=== PATIENT | male | born 1935 | race Caucasian/White ===

== ENCOUNTER 2016-07-25 11:17 | Emergency (ER) | payer MEDICARE, OTHER ==
[~2016-07-25] VITALS: Ht 180.3 cm; Wt 93.2 kg
[2016-07-25 11:19] VITALS: BP 134/87; PULSE 62; RESP 15; O2SAT 97
--- NOTE | 2016-07-25 13:24 | DRSVH ---
PROCEDURE: CT BRAIN WITHOUT CONTRAST ([id number]) INDICATIONS: fall, head trauma TECHNIQUE: Noncontrast 4.5 mm thick angled axial sections acquired from the foramen magnum to the vertex, with c oronal reformats. COMPARISON: None. FINDINGS: Image quality: Diagnostic. Brain: There is no acute intra-axial or extra-axial hemorrhage. No extra-axial fluid collection is i dentified. There is no midline shift or mass effect. The orbits are grossly unremarkable. No large areas of diffusely decreased attenuation are evident within the brain to suggest diffuse cer ebral edema. Areas of periventricular white matter low attenuation are present. 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 The ventricles and cortical sulci are moderately prominent. Bones: Calvarium and visualized facial bones are grossly intact. The imaged paranasal sinuses and m astoid air cells are clear. IMPRESSION: 1. No acute intracranial hemorrhage. 2. Mild chronic small vessel ischemic changes and parenchymal volume loss. Dictated by: Brayden Frankel M.D. on 07/25/2016 at 12:21 Approved by: Brayden Frankel M.D. on 07/25/2016 at 12:22
--- NOTE | 2016-07-25 13:41 | ED.REPORT ---
HPI-Trauma Minor / Fall Date of Service July 25, 2016 ED Provider: Helio Dawn PA-C Brannon is an 81-year-old male presents with a chief complaint of a ground-level fall. He reports tripping, striking his head against pavement just above his right eye. Also reports a skin tear on his right hand. Admits 7/10 headache. Denied use of blood thinners, seizure, vomiting, loss of consciousness, amnesia. Also denies neck pain, numbness/weakness/tingling in his limbs. Denies dizziness, presyncope, syncope. Nursing Notes Stated Complaint: POST FALL/HEAD AND RIGHT HAND INJURY Chief Complaint: Multiple Trauma/Fall Nursing Notes Reviewed: Yes Allergies: Coded Allergies: No Known Allergies (Unverified , 07/25/16) Scheduled Cephalexin (Cephalexin) 500 Mg Tablet 500 MG PO QID General Time Seen by MD: 12:20 Chief Complaint Fall Past Medical History Past Medical History Diabetes, hypertension Review of Systems Negative unless stated otherwise in history of present illness Physical Exam General: Well appearing, well developed, well nourished, no acute distress. Head: One and half centimeter laceration, right eyebrow. Negative mastoid or sinus tenderness Right arm: 5 similar laceration along the ulnar aspect of the distal forearm. No incursion into the muscle or joint space, negative foreign bodies. Eyes: No scleral icterus or injection. No discharge. PERRL. Vision grossly intact. Ears: Bilateral hearing aids in place. Hearing grossly intact. Nose: Symmetrical, nares patent without discharge. No frontal or maxillary sinus tenderness. Mouth/pharynx: normal dentition, mucus membranes moist. Tonsils 2+ and symmetrical, uvula midline. Pharynx noninjected, no cobblestoning or discharge. Voice clear. Neck: Supple, negative midline spinous process tenderness. No tenderness or lymphadenopathy. Trachea midline. Respiratory: No respiratory distress, no increased work of breathing. Speaks in complete sentences. Skin: Warm and dry. Neurological: Sensation and strength intact in extremities. Moderate tremor noted, which the patient states is chronic and at baseline. Cranial nerves: Vision grossly intact, PERRL, EOMI. Facial motion symmetrical, sensation to light touch over forehead, maxilla and mandible present and equal B /L. Voice clear and fluent, no drooling/pooling of saliva, uvula rises midline. Psychological: alert and oriented. Speech appropriate, linear and logical. Behavior appropriate. Initial Vital Signs Vital Signs (First) Date Time Temp Pulse Resp B/P Pulse Ox O2 Delivery O2 Flow Rate FiO2 07/25/16 11:19 36.1 62 15 134/87 97 Room Air Initial VS: Vital signs normal Interpretation & Diagnostics CT Head Interpretation PROCEDURE: CT BRAIN WITHOUT CONTRAST ([id number]) INDICATIONS: fall, head trauma IMPRESSION: 1. No acute intracranial hemorrhage. 2. Mild chronic small vessel ischemic changes and parenchymal volume loss. Interpretation / Wet Read by: Interpret - Radiologist Procedures Laceration Management Laceration Management: 1.5 cm laceration, right eyebrow Procedure Performed by: [facility] Consent / Setup / Site Prep: Informed consent provided, Consent from patient , Hand hygiene observed Local Anesthesia: Bupivacaine 0.5% (with epinephrine), 1cc, 27g needle Wound Preparation: Normal saline Debridement: None Foreign Body Explore / Removal: Explored for foreign body Repair Skin: Dermabond Closure Layers: 1 Post-Procedure / Complications: Dressing applied, No complications, Condition improved, Tolerated procedure well, Patient stable Laceration Management: 5 cm laceration left forearm Procedure Performed by: [facility] Consent / Setup / Site Prep: Informed consent provided, Consent from patient , Hand hygiene observed, Stand sterile technique Local Anesthesia: Bupivacaine 0.5% (with epinephrine), 3cc, 27g needle Wound Preparation: Normal saline Repair Skin: Nylon (5-0) # Sutures - Skin: 8 Suture Technique: Mattress Post-Procedure / Complications: Antibiotic oint applied, Dressing applied, No complications, Condition improved, Tolerated procedure well, Patient stable Re-Eval/Medical Decision Med Decision/Clinical Course 81-year-old male history of diabetes and hypertension presents for evaluation following a ground-level fall in which he struck his head against the pavement. Patient reports tripping and denies becoming dizzy, losing consciousness. Denies use of blood thinners other than aspirin, vomiting, seizure, amnesia, neck pain, numbness or tingling in his limbs. Does complain of a laceration on his right forearm and above his right eye. He is unsure of his tetanus status. CT scan of the brain is normal. Neurological examination is normal. C-spine cleared by nexus criteria as the patient was sober, alert and oriented with no distracting injuries, midline spinous process tenderness or focal neuro deficits. 1-1/2 severe laceration noted above right eye, 5 cm laceration noted and distal right forearm. This point I am reassured regarding the dangers condition such as intracranial bleeding, skull fracture or C-spine injury. Laceration above the right eye was cleaned with normal saline and closed with Dermabond. Laceration right forearm was cleansed with normal saline closed one layer with 8 mattress sutures, dressed with antibiotic ointment and gauze and placed in a splint with the fourth and fifth digits in slight flexion. Circulation and sensation were intact post splinting. Tetanus booster is provided as well as a prescription for cephalexin, which I feel is justified by his history of diabetes. Advised regarding wound care, primary care follow-up, emergency return precautions and [id number] analgesia. Patient verbalizes understanding of and consent to the plan. Discharge & Departure Impression: Primary Impression: Blunt head injury Encounter type: initial encounter Qualified Code: S09.8XXA - Other specified injuries of head, initial encounter Additional Impression: Laceration Disposition: Home Discharge Condition All VS Reviewed: Yes Condition: Stable Additional Instructions: Evaluation in the emergency department following a fall includes history, physical examination and CT scan which is reassuring that she does not have any bleeding in your brain. I believe there stable and safe to be discharged. You do have a small laceration over her right eye as well as a more significant laceration over your right hand. These both appear to be superficial, with no damage to the joint capsule or tendons of her hand. Because her history of diabetes, I will give prescription for cephalexin (Keflex ) to be taken 4 times a day for 5 days to prevent infection. We have updated her tetanus shot. We have cleaned and closed the wound on her forehead with skin glue. This should require no further treatment. The glue on the surface should flake off over the next week. We have cleaned, sutured and dressed the wound on your hand with antibiotic ointment and gauze. We have also placed in a splint to prevent the stitches from tearing out. He will come to remove the splint to make adjustments or check on the wound but please wear it at all times. Please leave this dressing on and dry for the next 24 hours. After that you can remove the dressing, clean with soap and water and then reapply antibiotic ointment and gauze or Band-Aid. Please do not submerge the wound as in washing dishes, swimming or soaking in a tub until you have the sutures removed. The pain is best treated with 400 mg of ibuprofen (Advil, Motrin) every 6 hours , or 1000 mg of acetaminophen (Tylenol) every 6 hours. These drugs can be taken at the same time for more severe pain. Be vigilant for signs of infection. While a small amount of redness, tenderness and clear or pink drainage is normal, any increasing pain, redness, swelling or the appearance of pus suggests infection. More severe infection as suggested by symptoms such as fever, chills, feeling ill, racing heart. Please return to emergency Department if you notice signs of infection. Follow-up with your primary care provider or return to the emergency department in 7 days for suture removal. Referrals: Pablo Lai MD (PCP) EDSupervising Provider for APC: Souleymane Powell DO copies to: Pablo Lai MD, Seth PA-C July 25, 2016 13:41
[2016-07-25] MEDS ORDERED: CEPH500T PO (15:12)
[2016-07-25] MEDS ORDERED: TdaP Vaccine 0.5 mL Inj IM ONE (15:15)
[2016-07-25 15:37] VITALS: BP 126/77; PULSE 66; RESP 20; O2SAT 94
== END 2016-07-25 15:37 | disposition home or self-care (01) ==
LOC: SED 11:17
DX: S01.111A Laceration without foreign body of right eyelid and periocular area, initial encounter (principal); S51.812A Laceration without foreign body of left forearm, initial encounter; W01.10XA Fall on same level from slipping, tripping and stumbling with subsequent striking against unspecified object, initial encounter; Y93.01 Activity, walking, marching and hiking; Y99.8 Other external cause status; Y92.018 Other place in single-family (private) house as the place of occurrence of the external cause; E11.9 Type 2 diabetes mellitus without complications; I10 Essential (primary) hypertension